=== PATIENT | female | born 1970 | race Caucasian/White ===

== ENCOUNTER 2018-10-16 11:53 | Observation (INO) | payer BC, OTHER ==
[2018-10-16] VITALS (15 sets, daily range): BP systolic 113–139; BP diastolic 62–91
[~2018-10-16] VITALS: Ht 177.8 cm; Wt 102.0 kg
[~2018-10-16 11:53] MED LIST: CARI350T PO; DIAZ5TAB PO; IBUP-1984 PO; NO HOME MEDS
[2018-10-16 12:24] LABS: BASOPHILS % (AUTO) 0.5 % (0-1); EOSINOPHILS # (AUTO) 0.1 X10'3 (0-0.9); EOSINOPHILS % (AUTO) 1.5 % (0-6); HEMATOCRIT 42.6 % (35.0-45.0); HEMOGLOBIN 14.1 g/dl (12.0-16.0); LYMPHOCYTES # (AUTO) 2.4 X10'3 (1.1-4.8); LYMPHOCYTES % (AUTO) 31.9 % (21-51); MEAN CORPUSCULAR HEMOGLOBIN 30.5 PG (27.0-31.0); MEAN CORPUSCULAR VOLUME 92.3 FL (78-98); MEAN PLATELET VOLUME 9.2 FL (7.4-10.4); MONOCYTES # (AUTO) 0.4 X10'3 (0-0.9); MONOCYTES % (AUTO) 5.6 % (2-12); NEUTROPHILS # (AUTO) 4.5 X10'3 (1.8-7.7); NEUTROPHILS % (AUTO) 60.5 % (42-75); PLATELET COUNT 261 X10'3 (140-440); RED BLOOD COUNT 4.62 X10'6 (4.20-5.60); RED CELL DISTRIBUTION WIDTH 12.5 % (11.5-14.5); WHITE BLOOD COUNT 7.5 X10'3 (4.5-11.0)
[2018-10-16] MEDS ORDERED: morphine 4 MG/ML inj SYRINge IV PRN ×5 (12:25→18:50)
[2018-10-16] MEDS ORDERED: ondansetron/PF 4mg/2ml inj IV ONE (12:25)
[2018-10-16] MEDS ORDERED: normal saline 1000ML IV soln IVB ONE (12:25)
[2018-10-16 12:28] LABS: URINE HCG NEGATIVE (NEG)
[2018-10-16 12:34] LABS: CLARITY,URINE CLEAR (Clear); COLOR,URINE YELLOW (Yellow); GLUCOSE, URINE NEGATIVE (Neg); KETONES,URINE NEGATIVE (Neg); LEUKOCYTE ESTERASE ,URINE NEGATIVE (Neg); NITRITES, URINE NEGATIVE (Neg); OCCULT BLOOD,URINE NEGATIVE (Neg); PROTEIN,URINE NEGATIVE (Neg); UA COLLECTION TYPE CLN CATCH MIDSTREAM; UROBILINOGEN,URINE 0.2 E.U/dL (0.2-1.0)
[2018-10-16] MEDS ORDERED: fentaNYL/PF 50MCG/1 ML 2ML syringe IV ONE (12:40)
[2018-10-16 12:42] LABS: ALANINE AMINOTRANSFERASE 24 U/L (12-78); ALBUMIN 3.6 G/DL (3.4-5.0); ALBUMIN/GLOBULIN RATIO 1.1 (1.1-1.5); ALKALINE PHOSPHATASE 76 IU/L (46-116); ANION GAP 5 (8-16); ASPARTATE AMINO TRANSFERASE 12 U/L (10-37); BILIRUBIN,TOTAL 0.1 MG/DL (0.1-1.0); BLOOD UREA NITROGEN 17 MG/DL (7-18); BUN/CREATININE RATIO 23.3 (6.6-38.0); CALCIUM 9.1 MG/DL (8.5-10.1); CHLORIDE 103 MMOL/L (99-107); CREATININE 0.73 MG/DL (0.40-0.90); GLUCOSE 104 MG/DL (70-104); LIPASE 198 U/L (73-393); POTASSIUM 3.8 MMOL/L (3.5-5.1); SODIUM 140 MMOL/L (135-145); TOTAL CARBON DIOXIDE 32.1 MMOL/L (24-32); eGFR 85 ML/MIN
[2018-10-16 12:48] LABS: INR 0.9 INR; PROTHROMBIN TIME 9.4 SECONDS (9.0-12.0)
[2018-10-16 13:07] LABS: TROPONIN I < 0.04 NG/ML (0.0-0.05)
[2018-10-16] MEDS ORDERED: ketorolac trometh. 30mg/ml inj. IV ONE (13:40)
[2018-10-16] MEDS ORDERED: ZOLP10TA5 PO (14:14)
[2018-10-16] MEDS ORDERED: BUPR-94 PO (14:14)
[2018-10-16] MEDS ORDERED: ALPR1TAB2 PO (14:14)
[2018-10-16] MEDS ORDERED: CITA40TA22 PO (14:14)
[2018-10-16] MEDS ORDERED: BUPR300T53 PO (14:14)
--- NOTE | 2018-10-16 14:15 | NUR ---
RELIEVING RN FOR BREAK, PT IS RESTING QUIETLY ON GURNEY, WAITING TO BE EVALUATED BY HOSPITALIST
[2018-10-16] MEDS ORDERED: magnesium 2GM in 50ml NS 50 ML IV PRN (15:05)
[2018-10-16] MEDS ORDERED: ondansetron/PF 4mg/2ml inj IV PRN ×2 (15:05→18:50)
[2018-10-16] MEDS ORDERED: magnesium 4gm in 100ml NS 100 ML IV PRN (15:05)
[2018-10-16] MEDS ORDERED: bisacodyl 10mg suppository rectal RC PRN (15:05)
[2018-10-16] MEDS ORDERED: acetaminophen 325mg tablet PO PRN (15:05)
[2018-10-16] MEDS ORDERED: mag hydrox/Alum hydrox/simeth 30ml oral suspension PO PRN (15:05)
[2018-10-16] MEDS ORDERED: zolpidem 5mg tablet PO PRN (15:05)
[2018-10-16] MEDS ORDERED: potassium Cl 20 mEq SR tablet PO PRN ×2 (15:05)
[2018-10-16] MEDS ORDERED: potassium Cl 40MEQ/NS 500ml 500 ML IV PRN ×2 (15:05)
[2018-10-16] MEDS ORDERED: ALPRAZolam 0.5mg tablet PO PRN (15:05)
--- NOTE | 2018-10-16 16:06 | NUR ---
Patient in room [facility]. I have received report from Erlin MCALLISTER and had the opportunity to ask questions and assume patient care.
[2018-10-16] MEDS: normal saline 1000ml 1,000 ML IV SCH (16:34)
[2018-10-16] MEDS: HYDROmorphone 1 mg/ml syringe IV PRN (17:12)
[2018-10-16] MEDS ORDERED: BUPIVAcaine/PF 2.5mg/ml (0.25%) 10ml vial ONE (17:28)
[2018-10-16] MEDS ORDERED: LIDOcaine 1% 30ml preserv. free vial ONE (17:28)
--- NOTE | 2018-10-16 18:47 | NUR ---
Problems reprioritized. Patient report given, questions answered & plan of care reviewed with jose MCALLISTER.
[2018-10-16] MEDS ORDERED: ringers solution, lacted 1,000 ML IV SCH (18:49)
[2018-10-16] MEDS ORDERED: midazolam 2 mg/2 ml injection ONE (18:50)
[2018-10-16] MEDS ORDERED: meperidine/PF 25mg/ml syringe IV PRN ×2 (18:50)
[2018-10-16] MEDS ORDERED: fentaNYL /PF 50mcg/ml 5ml ampule ONE (18:50)
[2018-10-16] MEDS ORDERED: proCHLORperazine 10 MG/2 ml inj IV PRN (18:50)
[2018-10-16] MEDS ORDERED: propofol inj 20 ML IV ONE (18:51)
[2018-10-16] MEDS ORDERED: LIDOcaine 2% (20mg/ml) 5ml vial ONE (18:51)
[2018-10-16] MEDS ORDERED: rocuronium 10mg/ml inj IV ONE (18:52)
[2018-10-16] MEDS ORDERED: neostigmine methylsulfate 1 MG/ML 10ml vial ONE (19:21)
[2018-10-16] MEDS ORDERED: glycopyrrolate 0.2mg/ml inj ONE (19:21)
[2018-10-16] MEDS ORDERED: dexamethasone sod phosphate 4mg/ml inj. ONE (19:21)
[2018-10-16] MEDS ORDERED: ondansetron/PF 4mg/2ml inj ONE (19:21)
[2018-10-16] MEDS: buPROPion SR 150mg tablet PO SCH (20:00)
--- NOTE | 2018-10-16 20:40 | NUR ---
Received from OR via BED, accompanied by Anesthesiologist DR MÁRQUEZ and report given by Anesthesiolgist. PT DROWSY BUT APPROPRIATE, DENIES PAIN, ABDOMEN W/4 LAP SITES W/BANDAIDS CDI. Addendum: 10/16/18 at 2056 by Arianne Lozada RN Amended: Links added.
[2018-10-16] MEDS: meperidine/PF 25mg/ml syringe IV PRN ×3 (21:20→21:48)
--- NOTE | 2018-10-16 21:55 | NUR ---
Report called to receiving nurse. PT Transferred IN STABLE CONDITION via BED, NO Belongings, PAIN IMPROVED DOWN TO A 01/08, RECEIVING RN AT BEDSIDE TO RECEIVE PT, BLL, CALL LIGHT GIVEN, SIDE RAILS UP X 2, PTS DAUGHTER AT BEDSIDE. Special Issues communicated to receiving nurse. YES. Addendum: 10/16/18 at 2204 by Arianne Lozada RN Amended: Links added.
--- NOTE | 2018-10-16 22:00 | NUR ---
Received report from Arianne MCALLISTER, patient from recovery. Patient resting comfortably, daughter at bedside.
[2018-10-17] VITALS: BP_SYST 126; BP_SYST 129; BP_DIAS 68; BP_DIAS 82
[2018-10-17 01:00] VITALS: BP 132/82
[2018-10-17] MEDS: normal saline 1000ml 1,000 ML IV SCH (01:02)
[2018-10-17] MEDS: HYDROmorphone 1 mg/ml syringe IV PRN ×3 (01:31→11:54)
[2018-10-17 02:00] VITALS: BP 124/82
[2018-10-17] MEDS: HYDROcodone/acetaminophen 5mg/325mg tablet PO PRN ×2 (03:18→09:36)
[2018-10-17 04:00] VITALS: BP 113/68
[2018-10-17 05:16] LABS: BASOPHILS % (AUTO) 0.2 % (0-1); EOSINOPHILS # (AUTO) 0.2 X10'3 (0-0.9); EOSINOPHILS % (AUTO) 1.7 % (0-6); HEMATOCRIT 39.5 % (35.0-45.0); LYMPHOCYTES % (AUTO) 9.6 % (21-51); MEAN CORPUSCULAR HEMOGLOBIN 30.6 PG (27.0-31.0); MEAN CORPUSCULAR VOLUME 92.7 FL (78-98); MEAN PLATELET VOLUME 9.4 FL (7.4-10.4); MONOCYTES # (AUTO) 0.3 X10'3 (0-0.9); MONOCYTES % (AUTO) 2.7 % (2-12); NEUTROPHILS # (AUTO) 8.9 X10'3 (1.8-7.7); NEUTROPHILS % (AUTO) 85.8 % (42-75); PLATELET COUNT 214 X10'3 (140-440); RED BLOOD COUNT 4.26 X10'6 (4.20-5.60); RED CELL DISTRIBUTION WIDTH 12.6 % (11.5-14.5); WHITE BLOOD COUNT 10.3 X10'3 (4.5-11.0)
[2018-10-17 05:44] LABS: ALANINE AMINOTRANSFERASE 25 U/L (12-78); ALBUMIN 2.9 G/DL (3.4-5.0); ALKALINE PHOSPHATASE 46 IU/L (46-116); ANION GAP 7 (8-16); ASPARTATE AMINO TRANSFERASE 20 U/L (10-37); BILIRUBIN,TOTAL 0.2 MG/DL (0.1-1.0); BLOOD UREA NITROGEN 10 MG/DL (7-18); BUN/CREATININE RATIO 15.9 (6.6-38.0); CALCIUM 7.9 MG/DL (8.5-10.1); CHLORIDE 106 MMOL/L (99-107); CREATININE 0.63 MG/DL (0.40-0.90); GLUCOSE 130 MG/DL (70-104); MAGNESIUM 1.6 MG/DL (1.5-2.4); POTASSIUM 4.1 MMOL/L (3.5-5.1); SODIUM 139 MMOL/L (135-145); TOTAL CARBON DIOXIDE 26.3 MMOL/L (24-32); TOTAL PROTEIN 5.8 G/DL (6.4-8.2); eGFR > 90 ML/MIN
--- NOTE | 2018-10-17 06:25 | NUR ---
Problems reprioritized. Patient report given, questions answered & plan of care reviewed with Stefani MCALLISTER.
--- NOTE | 2018-10-17 06:30 | NUR ---
Patient in room [facility]. I have received report from Elzbieta MCALLISTER and had the opportunity to ask questions and assume patient care. In bed resting
[2018-10-17] MEDS: buPROPion SR 150mg tablet PO SCH (07:10)
[2018-10-17 07:23] VITALS: BP 121/67
[2018-10-17] MEDS ORDERED: non-formulary drug (Bupropion Hcl (Wellbutrin Xl) 1 TABLET) PO SCH (08:00)
[2018-10-17] MEDS ORDERED: buproprion 150mg XL (24-hour) tablet PO SCH (08:00)
[2018-10-17] MEDS ORDERED: citalopram 20mg tablet PO SCH (08:00)
[2018-10-17] MEDS ORDERED: K and/or MAG REPLACEMENT MC SCH (08:00)
[2018-10-17] MEDS ORDERED: FLUC100T40 PO (10:50)
[2018-10-17] MEDS ORDERED: HYDR-4353 PO (10:50)
--- NOTE | 2018-10-17 12:59 | NUR ---
I spoke to Dr. Gaytan and he okayed the patient discharge. I gave patient the MD office number so she can follow up.
--- NOTE | 2018-10-17 13:00 | NUR ---
PATIENT WAS DISCHARGED WITH DAUGHTER AT BEDSIDE. I REMOVED IV AND GAVE PATIENT Khadra WILLAMS OFFICE NUMBER. HER MEDICATIONS WERE CALLED INTO [facility] [address]. ALL BELONGINGS SENT HOME WITH PATIENT.
--- NOTE | 2018-10-17 14:07 | NUR ---
PATIENT CALLED ABOUT HER [facility]CO MEDICATION THAT WAS DENIED BY [facility] BURDEN DO TO MISSING SIGNATURE. DR. WHITING WAS CALLED AND HE WILL BE AVAILABLE TO SIGN SCRIPT WHEN PATIENTS DAUGHTER BRINGS IT BACK TO THE HOSPITAL.
== END 2018-10-17 13:09 | disposition home or self-care (01) ==
LOC: ER 11:53 → INTOOBSV 15:02 → ED HOLD 15:02 → SUR 3N 16:01 → PACU 17:55 → SUR 3N 21:57
PROVIDERS: ADMIT Family Medicine; ATTEND Family Medicine
DX: K80.00 Calculus of gallbladder with acute cholecystitis without obstruction (principal); D36.0 Benign neoplasm of lymph nodes; F32.9 Major depressive disorder, single episode, unspecified; F41.9 Anxiety disorder, unspecified; Z90.710 Acquired absence of both cervix and uterus
CPT/HCPCS: 36415; 47562; 76700; 80053; 81003; 81025; 83690; 83735; 84484; 85025; 85610; 87070; 93005; 96374; 96375; 96376; 99284; G0378; J1100; J1170; J1885; J2001; J2175; J2250; J2270; J2405; J2704; J2710; J3010; J3490; J7030; J7120; 99285; A7000

== ENCOUNTER 2020-09-03 13:08 | Emergency (ER) | payer BC ==
[~2020-09-03] VITALS: Ht 177.8 cm; Wt 118.2 kg
[~2020-09-03 13:08] MED LIST changes: +ALPR1TAB2 PO; +BUPR-94 PO; +BUPR300T53 PO; -CARI350T PO; +CITA40TA22 PO; -DIAZ5TAB PO; +FLUC100T40 PO; -IBUP-1984 PO; -NO HOME MEDS; +ZOLP10TA5 PO
[2020-09-03 13:40] LABS: BASOPHILS # (AUTO) 0.1 X10'3 (0-0.2); BASOPHILS % (AUTO) 0.9 % (0-1); EOSINOPHILS # (AUTO) 0.3 X10'3 (0-0.9); EOSINOPHILS % (AUTO) 2.3 % (0-6); HEMATOCRIT 39.5 % (35.0-45.0); HEMOGLOBIN 13.4 g/dl (12.0-16.0); LYMPHOCYTES % (AUTO) 26.5 % (21-51); MEAN CORPUSCULAR HEMOGLOBIN 30.6 PG (27.0-31.0); MEAN CORPUSCULAR VOLUME 90.2 FL (78-98); MEAN PLATELET VOLUME 7.9 FL (7.4-10.4); MONOCYTES # (AUTO) 0.6 X10'3 (0-0.9); MONOCYTES % (AUTO) 5.3 % (2-12); NEUTROPHILS # (AUTO) 7.4 X10'3 (1.8-7.7); PLATELET COUNT 261 X10'3 (140-440); RED BLOOD COUNT 4.38 X10'6 (4.20-5.60); RED CELL DISTRIBUTION WIDTH 12.9 % (11.5-14.5); WHITE BLOOD COUNT 11.4 X10'3 (4.5-11.0)
[2020-09-03 13:57] LABS: ALANINE AMINOTRANSFERASE 34 U/L (12-78); ALBUMIN 3.2 G/DL (3.4-5.0); ALBUMIN/GLOBULIN RATIO 0.9 (1.1-1.5); ALKALINE PHOSPHATASE 78 IU/L (46-116); ANION GAP 11 (8-16); ASPARTATE AMINO TRANSFERASE 32 U/L (10-37); BILIRUBIN,TOTAL 0.4 MG/DL (0.1-1.0); BLOOD UREA NITROGEN 9 MG/DL (7-18); BUN/CREATININE RATIO 12.7 (6.6-38.0); CALCIUM 8.4 MG/DL (8.5-10.1); CHLORIDE 105 MMOL/L (99-107); CREATININE 0.71 MG/DL (0.40-0.90); GLUCOSE 117 MG/DL (70-104); POTASSIUM 3.4 MMOL/L (3.5-5.1); SODIUM 140 MMOL/L (135-145); TOTAL CARBON DIOXIDE 24.2 MMOL/L (24-32); TOTAL PROTEIN 6.7 G/DL (6.4-8.2); eGFR 88 ML/MIN
[2020-09-03] MEDS ORDERED: nitroGLYCERIN 0.4mg SUBLingual tab SL STA (14:12)
[2020-09-03] MEDS ORDERED: LORazepam 2 mg/ml vial IV ONE ×2 (14:50→15:20)
[2020-09-03 14:54] LABS: D-DIMER 0.38 MG/L FEU (0-0.50)
[2020-09-03 17:25] VITALS: BP 133/88
== END 2020-09-03 17:24 | disposition home or self-care (01) ==
LOC: ER 13:08
DX: R07.89 Other chest pain (principal); R11.0 Nausea; F41.9 Anxiety disorder, unspecified; F32.9 Major depressive disorder, single episode, unspecified; Z90.710 Acquired absence of both cervix and uterus; Z98.51 Tubal ligation status; Z98.890 Other specified postprocedural states; Z79.2 Long term (current) use of antibiotics; Z79.899 Other long term (current) drug therapy
CPT/HCPCS: 36415; 71045; 80053; 83880; 84484; 85025; 85379; 93005; 96374; 99285; J2060

== ENCOUNTER 2020-09-28 10:15 | Emergency (ER) | payer BC ==
[~2020-09-28] VITALS: Ht 177.8 cm; Wt 130.0 kg
[2020-09-28 10:33] VITALS: BP 197/96
[2020-09-28 11:19] LABS: BASOPHILS # (AUTO) 0.1 X10'3 (0-0.2); BASOPHILS % (AUTO) 0.6 % (0-1); EOSINOPHILS # (AUTO) 0.3 X10'3 (0-0.9); EOSINOPHILS % (AUTO) 2.4 % (0-6); HEMATOCRIT 41.2 % (35.0-45.0); HEMOGLOBIN 13.8 g/dl (12.0-16.0); LYMPHOCYTES # (AUTO) 3.2 X10'3 (1.1-4.8); LYMPHOCYTES % (AUTO) 26.4 % (21-51); MEAN CORPUSCULAR HEMOGLOBIN 30.5 PG (27.0-31.0); MEAN CORPUSCULAR HGB CONC 33.5 g/dL (33.0-36.5); MEAN CORPUSCULAR VOLUME 91.1 FL (78-98); MONOCYTES # (AUTO) 0.6 X10'3 (0-0.9); NEUTROPHILS % (AUTO) 65.6 % (42-75); PLATELET COUNT 305 X10'3 (140-440); RED BLOOD COUNT 4.52 X10'6 (4.20-5.60); WHITE BLOOD COUNT 12.2 X10'3 (4.5-11.0)
[2020-09-28 11:45] LABS: ANION GAP 7 (8-16); BLOOD UREA NITROGEN 13 MG/DL (7-18); BUN/CREATININE RATIO 18.8 (6.6-38.0); CHLORIDE 105 MMOL/L (99-107); CREATININE 0.69 MG/DL (0.40-0.90); GLUCOSE 127 MG/DL (70-104); POTASSIUM 3.9 MMOL/L (3.5-5.1); SODIUM 140 MMOL/L (135-145); TOTAL CARBON DIOXIDE 28.3 MMOL/L (24-32)
[2020-09-28 11:46] LABS: ALANINE AMINOTRANSFERASE 21 U/L (12-78); ALBUMIN 3.4 G/DL (3.4-5.0); ALBUMIN/GLOBULIN RATIO 0.9 (1.1-1.5); ALKALINE PHOSPHATASE 75 IU/L (46-116); ASPARTATE AMINO TRANSFERASE 12 U/L (10-37); BILIRUBIN,TOTAL 0.2 MG/DL (0.1-1.0); CALCIUM 9.1 MG/DL (8.5-10.1); TOTAL PROTEIN 7.2 G/DL (6.4-8.2); eGFR 90 ML/MIN
[2020-09-28 11:48] LABS: AMYLASE 38 U/L (25-115); LIPASE 92 U/L (73-393)
[2020-09-28] MEDS ORDERED: PANT-47 PO (14:33)
[2020-09-28] MEDS ORDERED: pantoprazole 40mg Tablet.DR PO ONE (14:35)
[2020-09-28] MEDS ORDERED: famotidine 20mg tablet PO ONE (14:35)
== END 2020-09-28 15:04 | disposition home or self-care (01) ==
LOC: ER 10:16
DX: R07.89 Other chest pain (principal); R10.13 Epigastric pain; Z98.891 History of uterine scar from previous surgery; Z90.710 Acquired absence of both cervix and uterus; Z98.51 Tubal ligation status; Z79.899 Other long term (current) drug therapy
CPT/HCPCS: 36415; 71045; 80053; 82150; 83690; 83880; 84484; 85025; 93005; 99285